=== PATIENT | male | born 1955 | race Caucasian/White ===

== ENCOUNTER → 2019-03-12 | Outpatient (CLI) | payer BC ==
--- NOTE | 2019-03-12 15:31 | NM ---
EXAMINATION TYPE: NM stress cardiolite complete DATE OF EXAM: 03/12/2019 COMPARISON: NONE HISTORY: 63-year-old male with tachycardia TECHNIQUE: After the intravenous administration of 10.3 mCi Tc 99m Sestamibi - Rest images obtained 50 minutes post injection. The patient exercised using a RUPALI protocol and 1 minute prior to peak exercise was injected with 26.4 mCi Tc 99m Sestamibi - Stress images obtained 16 minutes post injecti on. FINDINGS: Targeted heart rate (134 bpm) was achieved during performance of the study (heart rate achieved 150 B PM). Exercise time was 6 minutes 30 seconds. Review of stress and rest SPECT images demonstrates fixed decreased perfusion along the apical and in ferior apical wall that is actually larger on rest imaging suggesting concurrent attenuation artifact . No discrete reversibility is identified. Gated analysis shows normal wall motion with an estimated left ventricular ejection fraction of 52 %. TID is normal at 0.97. IMPRESSION: 1. Fixed perfusion abnormality along the apical and inferior apical wall. As this is larger on the re st images, a component of attenuation artifact is suggested. An area of old infarct is also possible. No suspicious reversibility identified. 2. Borderline to mildly decreased LVEF of 52%.
--- NOTE | 2019-03-13 09:48 | P.STRESS ---
- Stress Test Note Stress Test Results/Findings: Exam Performed: NM stress cardiolite complete Exam Date: 03/12/19 Reason for Exam: TACHYCARDIA Height: 6 ft Weight: 81.647 kg Protocol: CARDIOLITE RUPALI Stage: II Duration of Exercise: 6:30 Resting Heart Rate: 90 Resting Blood Pressure: 155/108 Maximum Achieved Heart Rate: 150 Maximum Achieved Blood Pressure: 172/105 85% PMHR: 134 100% PMHR: 158 METS: 7.9 Technologist Comment: Stress Test Results/Findings: This is a 63-year-old gentleman with history of hypertension, hypercholesteremia, and smoking history. Being evaluated for symptoms of palpitations. Stress data: Baseline EKG showed sinus rhythm with normal NM interval and QRS duration. There is poor R-wave progression in anterior leads. The blood pressure at rest is 1 5508 with a pulse rate of 90. Patient walked on the Rupali protocol for 6 minutes and 30 seconds achieving a maximal rate of 150 with blood pressure 170 over 105. EKGs taken during and after exercise did not reveal any changes of ischemia. Patient did not experience any chest pain. Patient had occasional to frequent PVCs at peak exercise. Final impression: #1. Negative stress test #2. Patient did not express any chest pain. #3. Occasional to frequent PVCs at peak exercise #4. Report on the nuclear images to be given by the radiologist
--- NOTE | 2019-03-13 12:49 | EST ---
Stress Test Results/Findings: Exam Performed: NM stress cardiolite complete Exam Date: 03/12/19 Reason for Exam: TACHYCARDIA Height: 6 ft Weight: 81.647 kg Protocol: CARDIOLITE RUPALI Stage: II Duration of Exercise: 6:30 Resting Heart Rate: 90 Resting Blood Pressure: 155/108 Maximum Achieved Heart Rate: 150 Maximum Achieved Blood Pressure: 172/105 85% PMHR: 134 100% PMHR: 158 METS: 7.9 Technologist Comment: Stress Test Results/Findings: This is a 63-year-old gentleman with history of hypertension, hypercholesteremia, and smoking history. Being evaluated for symptoms of palpitations. Stress data: Baseline EKG showed sinus rhythm with normal MA interval and QRS duration. There is poor R-wave progression in anterior leads. The blood pressure at rest is 1 5508 with a pulse rate of 90. Patient walked on the Rupali protocol for 6 minutes and 30 seconds achieving a maximal rate of 150 with blood pressure 170 over 105. EKGs taken during and after exercise did not reveal any changes of ischemia. Patient did not experience any chest pain. Patient had occasional to frequent PVCs at peak exercise. Final impression: #1. Negative stress test #2. Patient did not express any chest pain. #3. Occasional to frequent PVCs at peak exercise #4. Report on the nuclear images to be given by the radiologist MAX
== END | disposition home or self-care (01) ==
LOC: RADNMMAIN 08:39
PROVIDERS: ATTEND Family Medicine
DX: Z01.818 Encounter for other preprocedural examination (principal); I47.1 Supraventricular tachycardia; I51.89 Other ill-defined heart diseases
CPT/HCPCS: 93017; 78452; A9500

== ENCOUNTER → 2019-03-26 | Outpatient (CLI) | payer BC ==
[2019-03-26 09:38] LABS: African American GFR (CKD) 41 (>60 ml/min/1.73 sqM); Anion Gap 9 mmol/L; Blood Urea Nitrogen 47 mg/dL (9-20); Calcium 10.3 mg/dL (8.4-10.2); Carbon Dioxide 26 mmol/L (22-30); Chloride 105 mmol/L (98-107); Glucose 125 mg/dL (74-99); Potassium 5.8 mmol/L (3.5-5.1); Sodium 140 mmol/L (137-145)
== END | disposition home or self-care (01) ==
LOC: LABWHC1 08:45
PROVIDERS: ATTEND Family Medicine
DX: N17.9 Acute kidney failure, unspecified (principal)
CPT/HCPCS: 36415; 80048

== ENCOUNTER → 2025-03-05 | Outpatient (CLI) | payer MEDICARE ==
[2025-03-05 18:34] LABS: HCT 38.1 % (39.6-50.0); HGB 12.3 g/dL (13.0-17.0); MCH 30.4 pg (27.0-32.0); MCHC 32.3 g/dL (32.0-37.0); MCV 94.1 FL (80.0-97.0); NRBC Per 100 WBC 0 X 10*3/uL (0.00-0.01); Platelet Count 303 X 10*3/uL (140-440); RBC 4.05 X 10*6/uL (4.40-5.60); RDW 15.6 % (11.5-14.5); WBC 9.89 X 10*3/uL (4.50-10.00)
[2025-03-05 19:15] LABS: Anion Gap 14.80 mmol/L (4.00-12.00); Blood Urea Nitrogen 20.1 mg/dL (9.0-27.0); Carbon Dioxide 25.2 mmol/L (21.6-31.8); Chloride 102 mmol/L (96-109); Potassium 4.6 mmol/L (3.5-5.5); Sodium 142 mmol/L (135-145)
== END | disposition home or self-care (01) ==
LOC: LABPAT 14:27
PROVIDERS: ATTEND Internal Medicine Clinical Cardiac Electrophysiology
DX: Z01.812 Encounter for preprocedural laboratory examination (principal); I47.20 Ventricular tachycardia, unspecified; I42.8 Other cardiomyopathies
CPT/HCPCS: 80051; 82565; 84520; 85027

== ENCOUNTER 2025-03-12 11:11 | Inpatient (IN) | payer MEDICARE ==
[2025-03-11 09:07] VITALS: BMI 28.5
[2025-03-12] MEDS: IV FLUID CONTINUATION 1,000 ML IV ONE (12:16)
[2025-03-12] MEDS ORDERED: SUCCINYLCHOLINE CHLORIDE 200 MG/10 ML VIAL IV ONE (14:41)
[2025-03-12] MEDS ORDERED: FUROSEMIDE 10 MG/ML 2 ML VIAL ONE (14:41)
[2025-03-12] MEDS ORDERED: PHENYLEPHRINE 10 MG/ML VIAL ONE (14:41)
[2025-03-12] MEDS ORDERED: LIDOCAINE 1% INJ 10MG/ML (20 ML MDV) ONE (14:41)
[2025-03-12] MEDS ORDERED: HEPARIN SODIUM,PORCINE 10,000 UNIT/ML 1 ML VIAL ONE (14:41)
[2025-03-12] MEDS ORDERED: PROPOFOL 10 MG/ML 20 ML VIAL IV ONE (14:41)
[2025-03-12] MEDS ORDERED: GLYCOPYRROLATE 0.2 MG/ML 2 ML VIAL ONE (14:41)
[2025-03-12] MEDS ORDERED: ROCURONIUM 10 MG/ML (5 ML VIAL) IV ONE (14:41)
[2025-03-12] MEDS ORDERED: fentaNYL (PF) 50 MCG/ML 2 ML AMP ONE (14:41)
[2025-03-12] MEDS ORDERED: NEOSTIGMINE 1 MG/ML 10 ML VIAL ONE (14:41)
[2025-03-12] MEDS ORDERED: MIDAZOLAM 2 MG/2 ML VIAL ONE (14:41)
[2025-03-12] MEDS: LIDOCAINE 1% INJ 10MG/ML (20 ML MDV) SQ ONE ×2 (15:10→16:20)
[2025-03-12] MEDS: IOPAMIDOL-370 100ML BTL INJ ONE (16:20)
[2025-03-12] MEDS: HEPARIN SODIUM (1,000 UNIT/ML) 1,000 UNIT in SODIUM CHLORIDE 0.9% 1,000 ML IRRIGATION ONE (16:25)
[2025-03-12] MEDS: HEPARIN SOD,PORK IN 0.45% NACL 25,000 UNIT in 0.45% NACL 1 250ML.BAG IV ONE (16:25)
[2025-03-12] MEDS ORDERED: ACETAMINOPHEN TAB 325 MG TAB PO PRN (19:40)
--- NOTE | 2025-03-12 19:45 | P.HPCAR ---
History of Present Illness This is Dr. Win dictating an H/P on this patient The patient was interviewed and examined IMPRESSION / ASSESSMENT: History of syncope Runs of nonsustained VT on telemetry Normal coronary arteries Nonischemic cardiomyopathy with inferior lateral and inferior transmural scar on cardiac MRI Cardiac MRI revealed an ejection fraction of 41% longstanding history of PVCs PLAN: Diagnostic EP study for restratification in nonischemic cardiomyopathy with history of syncope Possible ablation, possible device implant depending on the results of the study Evaluation for cardiac sarcoidosis HPI Patient was admitted to [facility] several months back for syncope that was exertional in nature. On telemetry he had runs of nonsustained VT. At that time coronary angiography did not reveal any significant CAD. He was initially treated with oral amiodarone but I stopped his amiodarone on 17 December. He is currently on Toprol 50 mg twice daily He has a history of smoking, nicotine products History of alcohol use almost a pint per day for several years History of hypertension and dyslipidemia His 2D echo showed ejection fraction of 50% with inferior basal hypokinesis However his cardiac MRI showed a transmural scar in the inferior and inferior lateral basal wall with an ejection fraction of 41% The patient denies any recent syncope on beta-blockers ROS: No fever chills or rigors, no cough, phlegm or expectoration, no nausea, vomiting or diarrhea, no hematuria, dysuria, no musculoskeletal complaints, no strokes or seizures, no skin lesions. EXAMINATION: 155/98 mmHg Heart sounds S1-S2 are normal Breath sounds are clear Abdomen soft Extremities warm no edema No JVD REVIEW OF LABS, ECG & MEDICAL DATA TSH normal at 2.4 Physical Exam Vitals: Vital Signs Temp Pulse Resp BP BP Pulse Ox 03/12/25 12:16 98.6 F 68 16 165/98 155/109 98 Intake and Output 03/12/25 03/12/25 03/12/25 06:59 14:59 22:59 Intake Total 300 Balance 300 Intake: IV 300 Other: Weight 83.8 kg Past Medical History Past Medical History: Eye Disorder, Hearing Disorder / Deafness, Hyperlipidemia, Hypertension, Seizure Disorder Additional Past Medical History / Comment(s): See Dr. Win's H+P. "V-tach" per pt's . Cataracts. Last seizure- "Several years ago , alcohol related." -per spouse History of Any Multi-Drug Resistant Organisms: None Reported Additional Past Surgical History / Comment(s): Cyst in sinus cavity removed. Surgery to lt hand r/t severed tendon. Past Anesthesia/Blood Transfusion Reactions: No Reported Reaction Smoking Status: Current every day smoker - Past Family History Father Family Medical History: No Reported History Physical Examination Vital Signs Temp Pulse Resp BP BP Pulse Ox 03/12/25 12:16 98.6 F 68 16 165/98 155/109 98 Intake and Output 03/12/25 03/12/25 03/12/25 06:59 14:59 22:59 Intake Total 300 Balance 300 Intake: IV 300 Other: Weight 83.8 kg Results Current Medications Generic Name Dose Route Start Last Admin Trade Name Freq PRN Reason Stop Dose Admin Lactated Ringer's 1,000 mls @ 20 mls/hr 03/12/25 05:45 Lactated Ringers IV 04/11/25 05:44 .Q24H HOWARD Sodium Chloride 1,000 mls @ 20 mls/hr 03/12/25 05:45 Saline 0.9% IV 04/11/25 05:44 .Q24H HOWARD Intake and Output 03/12/25 03/12/25 03/12/25 06:59 14:59 22:59 Intake Total 300 Balance 300 Intake: IV 300 Other: Weight 83.8 kg Patient Weight 03/13/25 06:59 Weight 83.8 kg
[2025-03-12] MEDS ORDERED: METOPROLOL TARTRATE 50 MG TAB PO SCH (21:00)
[2025-03-13] MEDS: LACTATED RINGERS 1,000 ML IV SCH (05:42)
[2025-03-13] MEDS: SODIUM CHLORIDE 0.9% 1,000 ML IV SCH (05:43)
[2025-03-13] MEDS: ACETAMINOPHEN IV (For NPO) 1,000 MG in EMPTY BAG 1 BAG IVPB ONE (08:19)
[2025-03-13] MEDS: FOLIC ACID 1 MG TAB PO SCH (08:20)
[2025-03-13] MEDS: FENOFIBRATE 160 MG TAB PO SCH (08:20)
--- NOTE | 2025-03-13 10:02 | P.EPCON ---
Electrophysiology Consult - EP Consult Electrophysiology Consult: Patient is doing well. His groins have healed well. 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 Paucity of scar endocardially and most of the inferior wall except at the base RF ablation performed at the site of the best pace map with induction of nonsustained VT for morphology reasonably similar to the clinical VT However the VT remained inducible with double extrastimuli from the RV Suggest Dual-chamber ICD for secondary prevention of sudden cardiac Maximization of carvedilol and consideration for sotalol Epicardial pace mapping of the middle cardiac vein PET FDG as an outpatient Consideration for further ablation thereafter in the future I will schedule the procedure for him tomorrow and the patient understands and agrees to proceed
[2025-03-13 10:28] LABS: Basophils # (A) 0.06 10*3/uL (0.00-0.10); Basophils % (A) 0.7 %; Eosinophils # (A) 0.09 10*3/uL (0.04-0.35); Eosinophils % (A) 1.0 %; HCT 31.8 % (39.6-50.0); HGB 10.9 g/dL (13.0-17.0); Lymphocytes # (A) 1.44 10*3/uL (0.90-5.00); Lymphocytes % (A) 16.3 %; MCH 31.8 pg (27.0-32.0); MCHC 34.3 g/dL (32.0-37.0); MCV 92.7 fL (80.0-97.0); Monocytes # (A) 0.84 10*3/uL (0.20-1.00); Monocytes % (A) 9.5 %; Neutrophils # (A) 6.35 10*3/uL (1.80-7.70); Neutrophils % (A) 72.2 %; Platelet Count 202 10*3/uL (140-440); RBC 3.43 10*6/uL (4.40-5.60); RDW 15.2 % (11.5-14.5); WBC 8.81 10*3/uL (4.50-10.00)
[2025-03-13 10:47] LABS: African American GFR (CKD) 65 (>60 ml/min/1.73 sqM); Anion Gap 9 mmol/L; Blood Urea Nitrogen 26 mg/dL (9-20); Calcium 9.2 mg/dL (8.4-10.2); Carbon Dioxide 25 mmol/L (22-30); Chloride 100 mmol/L (98-107); Glucose 149 mg/dL (74-99); Non-African American GFR(CKD) 56 (>60 ml/min/1.73 sqM); Potassium 4.2 mmol/L (3.5-5.1); Sodium 134 mmol/L (137-145)
[2025-03-14] MEDS: SPIRONOLACTONE 25 MG TAB PO SCH (08:17)
[2025-03-14] MEDS: LOSARTAN 25 MG TAB PO SCH (08:18)
[2025-03-14] MEDS: SODIUM CHLORIDE 0.9% 1,000 ML IV SCH ×2 (09:45→22:43)
--- NOTE | 2025-03-14 10:24 | P.PN ---
Subjective Progress Note Date: 03/14/25 Patient is doing well. His groins have healed well. No hematoma no swelling No chest discomfort dizziness lightheadedness Maintained sinus rhythm on the monitor with occasional PVCs Blood pressure 112/72 mmHg pulse rate in the 60s and 70s Detailed discussion with the patient and his regarding his diagnostic EP study, cardiac MRI correlation, correlation with intracardiac echo and 2D echo and coronary angiography and plan for moving forward with dual-chamber ICD implantation scheduled for today. Impression History of syncope, normal coronary arteries, nonsustained VT on the monitor when patient was admitted for syncope previously Further workup has revealed Easily inducible sustained monomorphic ventricular tachycardia with hemodynamic compromise requiring antitachycardia pacing and later defibrillation Left ventricular inferior wall exit, inferior apical based on twelve-lead EKG Inferior basal and inferior basal-lateral scar in the left ventricle, nonischemic in nature, awaiting PET FDG for evaluation for sarcoidosis Detailed scar mapping of the left ventricle revealed fairly healthy scar endocardially especially at the points of the best pace map The best pace map ranged from 70-85% only consistent with deep myocardial or epicardial exit of the VT. Paucity of scar endocardially and most of the inferior wall except at the base RF ablation performed at the site of the best pace map with induction of nonsustained VT for morphology reasonably similar to the clinical VT However the VT remained inducible with double extrastimuli from the RV Suggest Add Aldactone 12.5 mg daily and losartan 12.5 mg daily Dual-chamber ICD for secondary prevention of sudden cardiac , scheduled for today Maximization of carvedilol and consideration for sotalol Epicardial pace mapping of the middle cardiac vein PET FDG as an outpatient Consideration for further ablation thereafter in the future Nurse practitioner note has been reviewed, I agree with documented findings and plan of care. Patient was seen and examined. Objective - Vital Signs Vital signs: Vital Signs Temp 98.3 F 03/14/25 03:11 Pulse 70 03/14/25 03:11 Resp 17 03/14/25 03:11 BP 126/68 03/14/25 03:11 Pulse Ox 96 03/14/25 03:11 FiO2 Intake & Output 03/13/25 03/14/25 03/14/25 18:59 06:59 18:59 Weight 83.8 kg Other: Voiding Method Toilet Toilet # Voids 1 1 - Labs CBC & Chem 7: 03/13/25 10:12 07/09/25 10:12 Labs: Abnormal Lab Results - Last 24 Hours (Table) 03/13/25 03/13/25 Range/Units 10:12 10:12 RBC 3.43 L (4.40-5.60) 10*6/uL Hgb 10.9 L (13.0-17.0) g/dL Hct 31.8 L (39.6-50.0) % RDW 15.2 H (11.5-14.5) % Sodium 134 L (137-145) mmol/L BUN 26 H (9-20) mg/dL Creatinine 1.30 H (0.66-1.25) mg/dL Glucose 149 H (74-99) mg/dL
[2025-03-14] MEDS: VANCOMYCIN 1,250 MG in SODIUM CHLORIDE 0.9% 250 ML IVPB ONE (10:46)
[2025-03-14] MEDS: IV FLUID CONTINUATION 1,000 ML IV ONE (15:14)
[2025-03-14] MEDS ORDERED: PHENYLEPHRINE 10 MG/ML VIAL ONE (18:44)
[2025-03-14] MEDS ORDERED: PROPOFOL 10 MG/ML 20 ML VIAL IV ONE (18:44)
[2025-03-14] MEDS ORDERED: KETAMINE HCL IN 0.9 % NACL 50 MG/5 ML SYRINGE ONE (18:44)
[2025-03-14] MEDS ORDERED: MIDAZOLAM 2 MG/2 ML VIAL ONE (18:44)
[2025-03-14] MEDS ORDERED: fentaNYL (PF) 50 MCG/ML 2 ML AMP ONE (18:44)
[2025-03-14] MEDS: IOPAMIDOL-370 100ML BTL MISCELLANE ONE (18:56)
[2025-03-14] MEDS: ROPIVACAINE 5 MG/ML 30 ML VIAL MISCELLANE ONE (19:18)
[2025-03-14] MEDS: LIDOCAINE 1% INJ 10MG/ML (20 ML MDV) SQ ONE (19:18)
[2025-03-14] MEDS ORDERED: ACETAMINOPHEN TAB 325 MG TAB PO PRN (20:54)
[2025-03-14] MEDS: ceFAZolin 1,000 MG in SODIUM CHLORIDE 0.9% IRRIG BTL 250 ML IRRIGATION ONE (21:19)
[2025-03-14] MEDS: ASPIRIN 325 MG TAB PO SCH (21:29)
[2025-03-15] MEDS: ACETAMINOPHEN IV (For NPO) 1,000 MG in EMPTY BAG 1 BAG IVPB ONE (00:28)
[2025-03-15 08:44] VITALS: BP 117/75; PULSE 79; RESP 16; TEMP 98.3
--- NOTE | 2025-03-15 08:47 | XR ---
EXAMINATION TYPE: XR chest 2V DATE OF EXAM: 03/15/2025 8:25 AM COMPARISON: None CLINICAL INDICATION: Male, 69 years old with history of Lead placement check; [facility] TECHNIQUE: XR chest 2V Frontal and lateral views of the chest. FINDINGS: Lungs/Pleura: There is no evidence of pleural effusion, focal consolidation, or pneumothorax. Pulmonary vascularity: Unremarkable. Heart/mediastinum: Cardiomediastinal silhouette is unremarkable. Atherosclerotic calcifications are seen in the aorta. Two lead cardiac conduction device overlying the left hemithorax with lead tips pr ojecting over the right ventricle and right atrium. Musculoskeletal: No acute osseous pathology. Other findings: None IMPRESSION: No acute cardiopulmonary disease/process. [facility], , 03/15/2025 8:45 AM
[2025-03-15] MEDS: APIXABAN 5 MG TAB PO SCH (09:12)
--- NOTE | 2025-03-15 11:11 | P.DS ---
Providers Date of admission: 03/14/25 09:32 Expected date of discharge: 03/15/25 Attending physician: Alexander Win Primary care physician: [facility] Course: Patient is doing well. His groins have healed well. No hematoma no swelling Chest wall site with no signs of infection or bleeding No chest discomfort dizziness lightheadedness Maintained sinus rhythm on the monitor with occasional PVCs Blood pressure 117/75 mmHg pulse rate in the 70s Patient is status post dual-chamber ICD implantation and has had no postprocedure complications. EKG has been reviewed. Chest x-ray reviewed. Device check completed. Impression History of syncope, normal coronary arteries, nonsustained VT on the monitor when patient was admitted for syncope previously Further workup has revealed Easily inducible sustained monomorphic ventricular tachycardia with hemodynamic compromise requiring antitachycardia pacing and later defibrillation Left ventricular inferior wall exit, inferior apical based on twelve-lead EKG Inferior basal and inferior basal-lateral scar in the left ventricle, nonischemic in nature, awaiting PET FDG for evaluation for sarcoidosis Detailed scar mapping of the left ventricle revealed fairly healthy scar endocardially especially at the points of the best pace map The best pace map ranged from 70-85% only consistent with deep myocardial or epicardial exit of the VT. Paucity of scar endocardially and most of the inferior wall except at the base RF ablation performed at the site of the best pace map with induction of nonsustained VT for morphology reasonably similar to the clinical VT However the VT remained inducible with double extrastimuli from the RV Plan Continue the addition of spironolactone 12.5 mg daily and losartan 12.5 mg daily and also Coreg 12.5 mg twice daily Patient will be on Eliquis 5 mg twice daily for 1 month only Consideration for sotalol Patient will be discharged home today in stable condition. PET FDG as an outpatient Consideration for further ablation thereafter in the future Nurse practitioner note has been reviewed, I agree with documented findings and plan of care. Patient was seen and examined. Plan - Discharge Summary Discharge Rx Participant: No New Discharge Prescriptions: New Spironolactone [Aldactone] 12.5 mg PO DAILY #45 tab carvediloL [Coreg*] 12.5 mg PO BID-W/MEALS #180 tab Apixaban [Eliquis] 5 mg PO BID #60 tab Losartan [Cozaar] 12.5 mg PO DAILY #45 tab Continue Ubidecarenone [Co Q-10] 30 mg PO QAM Thiamine [Vitamin B-1] 100 mg PO QAM Areds2 1 dose PO QAM Folic Acid 1 mg PO QAM Fenofibrate 145 mg PO QAM Vitamin B-1 (Unknwn Dose) 1 dose PO QAM Discontinued amLODIPine [Norvasc] 5 mg PO QAM Metoprolol Tartrate [Lopressor] 50 mg PO BID Discharge Medication List Areds2 1 dose PO QAM 03/11/25 [History] Fenofibrate 145 mg PO QAM 03/11/25 [History] Folic Acid 1 mg PO QAM 03/11/25 [History] Thiamine [Vitamin B-1] 100 mg PO QAM 03/11/25 [History] Ubidecarenone [Co Q-10] 30 mg PO QAM 03/11/25 [History] Vitamin B-1 (Unknwn Dose) 1 dose PO QAM 03/11/25 [History] Apixaban [Eliquis] 5 mg PO BID #60 tab 03/15/25 [Rx] Losartan [Cozaar] 12.5 mg PO DAILY #45 tab 03/15/25 [Rx] Spironolactone [Aldactone] 12.5 mg PO DAILY #45 tab 03/15/25 [Rx] carvediloL [Coreg*] 12.5 mg PO BID-W/MEALS #180 tab 03/15/25 [Rx] Follow up Appointment(s)/Referral(s): Alexander Win MD [STAFF PHYSICIAN] - 1 Week Activity/Diet/Wound Care/Special Instructions: PATIENT EDUCATION MATERIAL Instructions following a heart rhythm device implant. 1. Keep dressing DRY for 5 DAYS. You may cover the area with Saran or Cling Wrap, prior to a shower. 2. The dressing will be removed in the Device Clinic at [facility]. Absorbable sutures were used to close the wound. 3. Avoid raising the left arm above the shoulder level. 4 week restriction 4. Avoid arm movements, like backscratching, rubbing the head, or pulling on a cord. 4 weeks restriction 5. Gentle range of motion movements of the shoulder, closest to the incision should be performed to avoid a frozen shoulder. (Pendulum exercises of the shoulder) 6. The opposite arm may be used freely. 7. Avoid driving for 7 days. 8. Avoid activities such as golfing, swimming, weed whacking, lifting more than 10 pounds weight, bowling, gymnastics and weight training/lifting. (6 weeks restriction) 9. Activities such as wood chopping with an axe, pull-ups in the gymnasium, power lifting, arc-welding, being close to home induction cooktops will always be a problem. 10. Arm sling is only a reminder not to raise the arm above the head. You do not need to keep the arm completely immobilized. Your free to move the arm and use it and for normal activities. In case of any problems, please call [facility], @ [phone], Attention: Device Clinic Device clinic follow-up in 5 days Follow-up with primary teleprinter in 2-3 months New medications Carvedilol Stop metoprolol Spironolactone Losartan Stop amlodipine Eliquis for 4 weeks only and then stop, post VT ablation Discharge/Stand Alone Forms: AA Meetings [place], Who Do I Call?, Community Resources, Outpatient Counseling
--- NOTE | 2025-03-21 15:01 | P.EPPROC ---
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 High voltage impedance 64 ohms. Single coil lead implanted in the RV apex Dual ICD Page DR Marquez Procedure details: Patient was brought to the EP lab in a fasting state. Written informed consent was obtained prior to the procedure. Options, pros and cons, benefits and risks and complications discussed with patient in detail prior to the procedure (shared decision making). Importance of continuing medical treatment emphasized. Alternatives discussed. Patient would like to proceed with dual-chamber ICD implant. Left upper extremity venogram performed. 15 mL IV dye injected in the left arm. Patent axillary/subclavian vein The left pectoral area was prepped and draped as a protocol. IV antibiotics administered 1% lidocaine was used for local anesthesia. A 4 cm incision was made parallel to the deltopectoral groove, about 1.5 cm medial to it. The incision was carried down to the level of the pectoralis muscle and the subfascial pocket was made. Hemostasis was assured. The axillary vein access was obtained. Appropriately sized into to see sheaths were placed. A coronary sinus sheath and coronary sinus catheter was placed in the CS. Venogram was performed. The middle cardiac vein was extremely diminutive. Using the whisper wire and an LV lead I was able to Place the whisper wire into the midportion of the vein but the LV lead would only pass into the proximal part on account of the very small size of the vein. Therefore pace mapping within the middle cardiac vein to look for epicardial focus of VT could not be performed. ICD lead implanted in the right ventricle and screwed in. ICD lead tested for threshold, sensing, impedances and tested with high output pacing for diaphragmatic stimulation Atrial lead placed in the right atrial appendage and tested for threshold, sensing, impedance, and tested with high output pacing. Phrenic nerve stimulation Lead secured to the underlying transverse muscle after removing sheaths . Pocket irrigated with antibiotic solution Leads connected to the biventricular ICD generator. Wound closed in 3 layers and dressed per protocol Dual ICD interrogated and programmed. Appropriate pacing parameters, antitachycardia therapies with antitachycardia pacing cardioversion defibri llations programmed. DDD 50 with VIP mode on with appropriate VT and VF therapies Patient tolerated the procedure well without any acute complications. See scanned device report in EMR for lead details
== END 2025-03-15 12:51 | disposition home or self-care (01) | DRG 277 ==
LOC: CATHEP 11:11 → 6NMEDSUR 19:24 → CATHEP 03-14 09:32 → 6NMEDSUR 03-14 09:32
PROVIDERS: ADMIT Internal Medicine Clinical Cardiac Electrophysiology; ATTEND Internal Medicine Clinical Cardiac Electrophysiology
PROC: 02H63KZ Insertion of Defibrillator Lead into Right Atrium, Percutaneous Approach (ICD-10-PCS; 2025-03-14)
PROC: 02HK3KZ Insertion of Defibrillator Lead into Right Ventricle, Percutaneous Approach (ICD-10-PCS; 2025-03-14)
PROC: B51V1ZZ Fluoroscopy of Other Veins using Low Osmolar Contrast (ICD-10-PCS; 2025-03-14)
PROC: 5A2204Z Restoration of Cardiac Rhythm, Single (ICD-10-PCS; 2025-03-14)
PROC: 0JH608Z Insertion of Defibrillator Generator into Chest Subcutaneous Tissue and Fascia, Open Approach (ICD-10-PCS; principal; 2025-03-14 16:10)
DX: I47.29 Other ventricular tachycardia (principal); D86.85 Sarcoid myocarditis; I10 Essential (primary) hypertension; I42.8 Other cardiomyopathies; E78.5 Hyperlipidemia, unspecified; F17.200 Nicotine dependence, unspecified, uncomplicated; H91.90 Unspecified hearing loss, unspecified ear; I49.3 Ventricular premature depolarization; Z79.899 Other long term (current) drug therapy
CPT/HCPCS: 33249; 71046; 80048; 84443; 85025; 86850; 86900; 86901; 93654; 93662